=== PATIENT | female | born 1985 | race Caucasian/White ===

== ENCOUNTER 2018-03-05 20:07 | Emergency (ER) | payer OTHER, MEDICAID, SELFPAY ==
[2018-03-05 20:14] VITALS: BP 157/100; PULSE 113; RESP 20; TEMP 37.1; O2SAT 99
[2018-03-05 20:21] VITALS: BP 157/100; PULSE 113; RESP 20; TEMP 37.1; O2SAT 99
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
[2018-03-05] MEDS: TET,DIPH,PERTUSS(ACELL),VAC/PF 0.5 ML SYRINGE IM (21:27)
[2018-03-05] MEDS: OXYCODONE/ACETAMINOPHEN 5/325 TABLET 1 TAB PO (21:28)
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
[2018-03-05 22:04] VITALS: BP 148/90; PULSE 100; RESP 18; TEMP 37.2; O2SAT 98
== END 2018-03-05 22:08 | disposition home or self-care (01) ==
PROVIDERS: Emergency Provider Nurse Practitioner Family; Family Provider Family Medicine; PCP Family Medicine
DX: T21.11XA Burn of first degree of chest wall, initial encounter (principal)
CPT/HCPCS: 90471; 99282; 99283; 90715

== ENCOUNTER 2019-03-31 20:19 | Emergency (ER) | payer OTHER, MEDICAID, SELFPAY ==
--- NOTE | 2019-03-31 20:29 | PC.NURSE ---
pt reports waking today with a red painful goopy eye that has gotten worse throughout the day. She states the pain increases with pressure when she bends over to pick something up. Reports friends have pink eye. concerned for pink eye
[2019-03-31] MEDS: POLYMY B/TRIMETH OPHTH PREPACK 1 BOTTLE MISC (20:36)
--- NOTE | 2019-03-31 20:37 | ED.EYEPROB ---
HPI - Eye Problem <NATALI Pena - Last Filed: 03/31/19 21:17> General Chief complaint: Eye Problems Stated complaint: POSS PINK EYE Time Seen by Provider: 03/31/19 20:24 Source: patient Mode of arrival: ambulatory Limitations: no limitations History of Present Illness HPI Narrative: Patient is a healthy 33-year-old female who presents emergency department today complaining of purulent discharge starting this morning when she woke up. She states she had some minor irritation in her right eye and some light sensitivity. This afternoon she noticed that she had increased purulent discharge. She states that 3 of her friends have had pinkeye in the past week and she is afraid that she has same. Patient denies any vision changes, vision loss, headaches, recent illness, chest pain, shortness of breath, ear pain, sore throat, nasal congestion, abdominal pain, or other concerning findings. Related Data Previous Rx's Medication Instructions Recorded albuterol sulfate 90 mcg/actuation 2 puff INHALATION Q4HP PRN #1 inh 04/26/18 aerosol inhaler fluticasone propionate 110 1 puff INHALATION BID #12 gram 04/26/18 mcg/actuation HFA aerosol inhaler polymyxin B sulf-trimethoprim 1 drop EYE-RIGHT Q3H 7 Days #10 ml 03/31/19 Allergies Allergy/AdvReac Type Severity Reaction Status Date / Time azithromycin [AZITHROMYCIN] Allergy Mild Verified 03/31/19 20:35 Review of Systems <NATALI Pena - Last Filed: 03/31/19 21:17> Review of Systems Narrative: REVIEW OF SYSTEMS: GENERAL: Denies fever or chills. HENT: No head trauma, hearing loss, or sore throat. EYES: Complains of eye irritation and purulent discharge, see HPI. NECK/LYMPHATIC: No lymphadenopathy. CARDIOVASCULAR: No chest pain. RESPIRATORY: No cough or shortness of breath. INTEGUMENTARY: No rash, lesions, or pruritus. NEURO: No headaches or confusion. PFSH <NATALI Pena - Last Filed: 03/31/19 21:17> Medical History Asthma (Chronic 1994) Chicken pox (Resolved 1990) Chronic cough (Chronic) Migraines (Chronic 2004) Ovarian cyst (Chronic 2015) Painful menstrual periods (Chronic) Surgical History No history of previous surgery (Resolved 09/2015) Family History (Updated 04/26/18 @ 11:22 by Sweta Alvarez) Father Age: 63 Diabetes mellitus Grandfather Diabetes mellitus Heart disease Hypertension High cholesterol Kidney failure Grandmother Age: 83 Diabetes mellitus Heart disease Hypertension High cholesterol Stroke Mother Age: 63 Hypertension High cholesterol Grandmother Cancer Lung cancer Grandfather No problems noted. Social History Smoking Status: Former smoker (quit 02/2018) Family History Father Age: 63 Diabetes mellitus Grandfather Diabetes mellitus Heart disease Hypertension High cholesterol Kidney failure Grandmother Age: 83 Diabetes mellitus Heart disease Hypertension High cholesterol Stroke Mother Age: 63 Hypertension High cholesterol Grandmother Cancer Lung cancer Grandfather No problems noted. Social History Smoking Status: Former smoker (quit 02/2018) Exam <NATALI Pena - Last Filed: 03/31/19 21:17> Initial Vital Signs Initial Vital Signs: PHYSICAL EXAMINATION: GENERAL: Well groomed, alert, and cooperative. Answers questions promptly and appropriately. Vital signs noted. HENT: Normocephalic, atraumatic. Hearing intact. Oral mucosa is pink and moist. Face features symmetrical. EYES: PERRLA, EOMIs without pain, significant purulent discharge noted around right eye, conjunctiva slightly erythematous, minor swelling to upper eyelid without significant erythema, lesions, or nodules. No foreign bodies or abrasions visualized. No nasal discharge, slight erythema to oropharynx without exudate. SKIN: Warm, dry, soft, appropriate color for ethnicity. NEURO: Alert and Oriented X 3. Good coordination. PSYCH: Appropriate affect and mood. Course <NATALI Pena - Last Filed: 03/31/19 21:17> Orders Ordered: Discontinued Medications Polymyxin/Trimethoprim Sulfate (Polytrim Prepack) 1 bottle MISC SEEINSTR ONE Stop: 03/31/19 20:32 Last Admin: 03/31/19 20:36 Dose: 1 drop Documented by: JUSTA <Klever Barnes DO - Last Filed: 04/01/19 06:47> Orders Ordered: Discontinued Medications Polymyxin/Trimethoprim Sulfate (Polytrim Prepack) 1 bottle MISC SEEINSTR ONE Stop: 03/31/19 20:32 Last Admin: 03/31/19 20:36 Dose: 1 drop Documented by: JUSTA [facility] - Eye Problem <NATALI Pena - Last Filed: 03/31/19 21:17> Medical Records Attestation: I reviewed the patient's medical records. Lab Data Attestation: I reviewed the patient's lab results. MDM Narrative Medical decision making narrative: Differential includes most likely conjunctivitis (viral versus bacteria, possibly viral in nature due to lack of significant erythematous conjunctiva and associated oropharynx erythema, however, the fact that is unilateral and multiple fronts of head it suggest bacterial. Regardless, conjunctivitis is treated the same.). No concern for acute glaucoma (no eye pain, EOMIs without pain, lobe does not appear swollen), a concern for cellulitis as there is no periorbital erythema, very low concern for foreign object in the eye has known was noted on exam, patient states that she was not performing any activities such as cutting, sawing, or chopping that could put her at risk for foreign body. Discharge Plan Departure Patient Disposition: Home Clinical Impression: Conjunctivitis Qualifiers: Conjunctivitis type: acute Acute conjunctivitis type: bacterial Laterality: right Qualified Code(s): H10.31 - Unspecified acute conjunctivitis, right eye Discharge Date/Time: 03/31/19 20:46 Activity Restrictions/Additional Instructions: Thank you for entrusting me with your care today. As discussed, I believe you have conjunctivitis. Please use drops as directed. Follow up with her primary care provider next few days. Return emergency department if you develop vision loss, vision changes, severe headaches, chest pain, shortness of breath, or syncope. Prescriptions: New polymyxin B sulf-trimethoprim 10,000 unit- 1 mg/mL drops 1 drop EYE-RIGHT Q3H 7 Days Qty: 10 RF: 0 No Action fluticasone propionate [Flovent HFA] 110 mcg/actuation HFA aerosol inhaler 1 puff INHALATION BID Qty: 12 RF: 3 albuterol sulfate [Ventolin HFA] 90 mcg/actuation HFA aerosol inhaler 2 puff INHALATION Q4HP PRN (Reason: Asthma) Qty: 1 RF: 12 <Klever Barnes, DO - Last Filed: 04/01/19 06:47> Sign Out Provider Sign Out Attestation: I was immediately available in the department for consultation. Documentation has been reviewed. I agree with assessment and plan.
== END 2019-03-31 20:46 | disposition home or self-care (01) ==
LOC: ED 20:38
PROVIDERS: Emergency Provider Nurse Practitioner; PCP Family Medicine
DX: H10.31 Unspecified acute conjunctivitis, right eye (principal)
CPT/HCPCS: 99281

== ENCOUNTER 2019-04-03 13:58 | Emergency (ER) | payer OTHER, MEDICAID, SELFPAY ==
--- NOTE | 2019-04-03 14:05 | ED.EYEPROB ---
HPI - Eye Problem General Chief complaint: Eye Problems Stated complaint: Worsening pink eye Time Seen by Provider: 04/03/19 14:05 Source: patient Mode of arrival: ambulatory Limitations: no limitations History of Present Illness HPI Narrative: Patient is a 33-year-old female who presents with worsening right eye redness and pain. She was seen evaluated here 3 days ago placed on Polytrim drops she feels like it is getting worse. She still having drainage. No fevers chills she feels like sandpaper in right eye sensitive to light MD chief complaint: eye pain and eye redness Duration: constant Location: right eye Eye Symptoms: burning, redness, pain and foreign body sensation Related Data Previous Rx's Medication Instructions Recorded albuterol sulfate 90 mcg/actuation 2 puff INHALATION Q4HP PRN #1 inh 04/26/18 aerosol inhaler fluticasone propionate 110 1 puff INHALATION BID #12 gram 04/26/18 mcg/actuation HFA aerosol inhaler polymyxin B sulf-trimethoprim 1 drop EYE-RIGHT Q3H 7 Days #10 ml 03/31/19 ofloxacin 2 drop EYE-RIGHT Q4HRWA #10 ml 04/03/19 Allergies Allergy/AdvReac Type Severity Reaction Status Date / Time azithromycin [AZITHROMYCIN] Allergy Mild Verified 03/31/19 20:35 Review of Systems Review of Systems Narrative: GENERAL: Denies chills,fever HEENT: See HPI RESPIRATORY: Denies dyspnea, cough, wheezing CARDIOVASCULAR: Denies chest pain, palpitations GASTROINTESTINAL: Denies nausea, vomiting MUSCULOSKELETAL: Denies extremity pain, injury SKIN: No rash, no laceration, no pruritus NEUROLOGIC: Denies weakness, dizziness, headache, numbness 8 point review of systems is negative except for those stated above and HPI PFSH Medical History Asthma (Chronic 1994) Chicken pox (Resolved 1990) Chronic cough (Chronic) Migraines (Chronic 2004) Ovarian cyst (Chronic 2014) Painful menstrual periods (Chronic) Surgical History No history of previous surgery (Resolved 09/2015) Family History Father Age: 63 Diabetes mellitus Grandfather Diabetes mellitus Heart disease Hypertension High cholesterol Kidney failure Grandmother Age: 83 Diabetes mellitus Heart disease Hypertension High cholesterol Stroke Mother Age: 63 Hypertension High cholesterol Grandmother Cancer Lung cancer Grandfather No problems noted. Social History Smoking Status: Former smoker Family History Father Age: 63 Diabetes mellitus Grandfather Diabetes mellitus Heart disease Hypertension High cholesterol Kidney failure Grandmother Age: 83 Diabetes mellitus Heart disease Hypertension High cholesterol Stroke Mother Age: 63 Hypertension High cholesterol Grandmother Cancer Lung cancer Grandfather No problems noted. Social History Smoking Status: Former smoker Exam Initial Vital Signs Initial Vital Signs: Vital Signs Temperature 97.5 F L 04/03/19 14:06 Pulse Rate 110 H 04/03/19 14:06 Respiratory Rate 13 04/03/19 14:06 Blood Pressure 158/100 H 04/03/19 14:06 Pulse Oximetry 98 04/03/19 14:06 GENERAL: Well-appearing, well-nourished and in no acute distress. EYES right eye was treated with proparacaine, stained with fluorescein. No dye uptake. No foreign body. Subconjunctival hemorrhage noted in right eye as well. However there is significant conjunctival injection and erythema. EOMI. MAUREEN CARDIOVASCULAR: peripheral pulses in tact, cap refill <2 sec RESPIRATORY: No respiratory distress, speaks in full sentences without difficulty EXTREMITIES: Normal range of motion, no clubbing or edema. Neurovascularly intact NEUROLOGICAL: Cranial nerves II through XII grossly intact. Normal gait and speech. SKIN: Warm, dry, no petechiae, no rashes or lesions. Course Orders Ordered: Discontinued Medications Proparacaine HCl (Parcaine 0.5% Ophth Radha) 1 drops EYE-RIGHT NOW ONE Stop: 04/03/19 14:11 Last Admin: 04/03/19 14:16 Dose: 1 1000units Documented by: NATIVIDAD Vital Signs Vital signs: Vital Signs - 8 hr 04/03/19 14:06 Temperature 97.5 F L Pulse Rate 110 H Respiratory Rate 13 Blood Pressure 158/100 H Pulse Oximetry 98 MDM - Eye Problem MDM Narrative Medical decision making narrative: Will change antibiotic at this time. She also has subconjunctival hemorrhage noted in the right eye. Discharge Plan Departure Patient Disposition: Home Clinical Impression: Acute conjunctivitis, right eye Qualifiers: Acute conjunctivitis type: bacterial Qualified Code(s): H10.31 - Unspecified acute conjunctivitis, right eye Subconjunctival hemorrhage Qualifiers: Laterality: right Qualified Code(s): H11.31 - Conjunctival hemorrhage, right eye Discharge Date/Time: 04/03/19 14:46 Instructions: DI for Conjunctivitis Activity Restrictions/Additional Instructions: *You have been diagnosed with right eye conjunctivitis *What to do: Try not to touch eye you will be sensitive to light. Blood in your eye will improve over time. *Continue to take medications as directed *Follow up with your primary care provider in 2-3 days *Return to ER if you should have surrounding redness, or any new, worsening or concerning symptoms Prescriptions: New ofloxacin 0.3 % drops 2 drop EYE-RIGHT Q4HRWA Qty: 10 RF: 0 No Action fluticasone propionate [Flovent HFA] 110 mcg/actuation HFA aerosol inhaler 1 puff INHALATION BID Qty: 12 RF: 3 albuterol sulfate [Ventolin HFA] 90 mcg/actuation HFA aerosol inhaler 2 puff INHALATION Q4HP PRN (Reason: Asthma) Qty: 1 RF: 12 polymyxin B sulf-trimethoprim 10,000 unit- 1 mg/mL drops 1 drop EYE-RIGHT Q3H 7 Days Qty: 10 RF: 0 Referrals: [facility] [Outside] Cullen Guzman MD [Primary Care Provider] -
[2019-04-03 14:06] VITALS: BP 158/100; PULSE 110; RESP 13; TEMP 36.4; O2SAT 98
[2019-04-03] MEDS: PROPARACAINE 0.5% OPHTH SOL 1 DROPS EYE-RIGHT (14:16)
== END 2019-04-03 14:46 | disposition home or self-care (01) ==
PROVIDERS: Emergency Provider Emergency Medicine; PCP Family Medicine
DX: H10.31 Unspecified acute conjunctivitis, right eye (principal); H11.31 Conjunctival hemorrhage, right eye
CPT/HCPCS: 99282

== ENCOUNTER → 2020-02-23 16:53 | Outpatient (ROUT) | payer OTHER, MEDICAID, SELFPAY ==
[2020-02-27 12:26] LABS: Urine Chlamydia NOT DETECTED; Urine N gonorrhoeae NOT DETECTED
== END ==
PROVIDERS: PCP Family Medicine; Visit Provider Physician Assistant
DX: Z20.2 Contact with and (suspected) exposure to infections with a predominantly sexual mode of transmission (principal)
CPT/HCPCS: 87491; 87591

== ENCOUNTER → 2020-06-30 16:59 | Outpatient (CLI) | payer OTHER, MEDICAID, SELFPAY | PROVIDERS: PCP Family Medicine; Visit Provider Physician Assistant | DX: N89.8 Other specified noninflammatory disorders of vagina (principal) | CPT/HCPCS: 87210; 87491; 87591 ==

== ENCOUNTER 2020-11-04 23:38 | Emergency (ER) | payer OTHER, MEDICAID, SELFPAY ==
[2020-11-04 23:47] VITALS: BP 161/104; PULSE 101; RESP 22; TEMP 36.8; O2SAT 99; BMI 39.4
--- NOTE | 2020-11-05 00:12 | ED.GENADULT ---
HPI - General Adult General Chief complaint: Nasal Problem Stated complaint: loss of taste and smell Time Seen by Provider: 11/04/20 23:43 Source: patient Mode of arrival: Ambulatory Limitations: no limitations History of Present Illness HPI narrative: Patient is a 35-year-old female who approximately 2 days ago had some sinus congestion and a slight headache. Yesterday she lost her sense of taste and smell. She is here concerned about COVID-19. She has had no recent travel. No known sick contacts. Is currently not having any respiratory distress. No cough. No fevers. No body aches. Related Data Previous Rx's Medication Instructions Recorded albuterol sulfate 90 mcg/actuation 2 puff INHALATION Q4HP PRN #1 inh 02/25/20 aerosol inhaler metronidazole 500 mg tablet 500 mg PO BID #14 tab 06/30/20 Allergies Allergy/AdvReac Type Severity Reaction Status Date / Time azithromycin [AZITHROMYCIN] Allergy Mild Verified 06/30/20 17:15 Review of Systems Constitutional Constitutional: Denies fever(s) and Denies headache(s) ENT Ears, Nose, Mouth, and Throat: Denies headache(s) Comments: Loss of sense of taste and smell Cardiovascular Cardiovascular: Denies dyspnea Respiratory Respiratory: Denies cough and Denies dyspnea Integumentary/Breasts Skin/Breast: Denies rash Neurologic Neurologic: Denies behavioral changes and Denies headache(s) Psychiatric Psychiatric: Denies behavioral changes Hematologic/Lymphatic On Anticoagulants: No Allergic/Immunologic Allergic/Immunologic: Denies urticaria Patient History Medical History Asthma (1994) Bacterial vaginosis Chicken pox (1990) Chronic cough Migraines (2004) Moderate persistent asthma Ovarian cyst (2014) Painful menstrual periods Trichomonas vaginitis Surgical History No history of previous surgery (09/2015) Family History Father Age: 65 Diabetes mellitus Grandfather Diabetes mellitus Heart disease Hypertension High cholesterol Kidney failure Grandmother Age: 85 Diabetes mellitus Heart disease Hypertension High cholesterol Stroke Mother Age: 65 Hypertension High cholesterol Grandmother Cancer Lung cancer Grandfather No problems noted. Social History Smoking Status: Former smoker Smoking Status: Former smoker alcohol intake frequency: 0-2 drinks per day Substance Use Type: marijuana Exam Initial Vital Signs Initial Vital Signs: Vital Signs Temperature 98.3 F 11/04/20 23:47 Pulse Rate 101 H 11/04/20 23:47 Respiratory Rate 22 11/04/20 23:47 Blood Pressure 161/104 H 11/04/20 23:47 Pulse Oximetry 99 11/04/20 23:47 Const General: cooperative and comfortable Limitations: mental status not altered HENMT Head: normal to inspection and normocephalic Resp Effort & Inspection: normal respiratory effort Cardio Rate: regular rate Neuro General: patient alert and patient awake Speech: speech normal Extrem General: normal to inspection Psych Appearance: grossly normal and well kempt Course Orders Ordered: ED Orders 11/04/20 23:52 COVID19 -Nasal swab/Pre-Proc Stat Vital Signs Vital signs: Vital Signs - 8 hr 11/04/20 23:47 11/05/20 00:40 Temperature 98.3 F Pulse Rate 101 H 99 H Respiratory Rate 22 20 Blood Pressure 161/104 H 168/108 H Pulse Oximetry 99 99 Medical Decision Making Lab Data Lab results reviewed: Yes I reviewed the patient's lab results. Labs: Lab Results 11/04/20 Range/Units 23:52 SARS-CoV-2 (PCR) Positive H (Negative) MDM Narrative Medical decision making narrative: Patient is COVID positive. She has no respiratory symptoms today. She does live with her parents who have both been vaccinated. We did discuss current CDC guidelines with regard to quarantine herself. Discussed return precautions and follow-up instructions. She expressed understanding and agreement. Discharge Plan Departure Patient Disposition: Home Clinical Impression: 2019 novel coronavirus detected Instructions: Coronavirus Disease 2019 Activity Restrictions/Additional Instructions: Your testing today was positive for coronavirus. You can take Tylenol for any fevers. You need to quarantine yourself for at least the next 10 days and greater than 24 hours after the resolution of your symptoms. Return to the emergency department for any new or worsening symptoms Prescriptions: No Action metronidazole [Flagyl] 500 mg tablet 500 mg PO BID Qty: 14 RF: 0 albuterol sulfate [Ventolin HFA] 90 mcg/actuation HFA aerosol inhaler 2 puff INHALATION Q4HP PRN (Reason: Asthma) Qty: 1 RF: 11 Referrals: Cullen Guzman MD [Primary Care Provider] -
[2020-11-05 00:13] LABS: COVID19 -Nasal RAPID POSITIVE (Negative)
[2020-11-05 00:40] VITALS: BP 168/108; PULSE 99; RESP 20; O2SAT 99
== END 2020-11-05 00:41 | disposition home or self-care (01) ==
PROVIDERS: Emergency Provider Emergency Medicine; PCP Family Medicine
DX: U07.1 COVID-19 (principal)
CPT/HCPCS: 87635; 99281; 99282; C9803

== ENCOUNTER → 2021-12-30 08:01 | Outpatient (CLI) | payer OTHER, MEDICAID, SELFPAY | PROVIDERS: PCP Registered Nurse Diabetes Educator; Referring Provider Physician Assistant; Visit Provider Physician Assistant | DX: J02.9 Acute pharyngitis, unspecified (principal) | CPT/HCPCS: 87880 ==

== ENCOUNTER 2022-05-15 16:14 | Emergency (ER) | payer OTHER, MEDICAID, SELFPAY ==
[2022-05-15 16:32] VITALS: BP 147/91; PULSE 110; RESP 18; TEMP 36.7; O2SAT 99; BMI 35.4
--- NOTE | 2022-05-15 17:20 | ED_ITS ---
HPI - Skin/Abscess/Foreign Bdy General Chief complaint: Skin/Abscess/Foreign Body Stated complaint: Painful sores on head Time Seen by Provider: 05/15/22 16:36 Source: patient Mode of arrival: Ambulatory History of Present Illness HPI narrative: Patient is a 37-year-old female who presented to the emergency room today with complaint of a sore to her left forehead area. States that about 4 days ago she had sore on her eyelid. States the sore on her eyelid popped about 3 days ago she then noticed a sore on her eyebrow and forehead. The sore on her eyebrow popped last night and drained yellow secretions. The sore on her forehead in creased in size and pain last night. Admits to an allergy to azithromycin denies fever chills chest pain or shortness of breath. Related Data Previous Rx's Medication Instructions Recorded sulfamethoxazole 800 1 tab PO BID #14 tabs 05/15/22 mg-trimethoprim 160 mg tablet (Bactrim DS) albuterol sulfate 90 mcg/actuation 2 puff inhalation Q4HP PRN Asthma 05/19/22 aerosol inhaler (Ventolin HFA) #8.5 grams fluticasone propionate 110 1 puff inhalation BID #12 grams 05/19/22 mcg/actuation HFA aerosol inhaler (Flovent HFA) Allergies Allergy/AdvReac Type Severity Reaction Status Date / Time azithromycin [AZITHROMYCIN] Allergy Mild Rash Verified 05/19/22 14:30 Review of Systems Review of Systems Narrative: R.O.S.: General: No fever, chills or fatigue. Cardiovascular: No chest pain or palpitations Respiratory: No S.O.B. HEENT: No congestion, ear pain, rhinorrhea, sore throat or tinnitus Gastrointestinal: No nausea or vomiting : No urinary concerns Skin: Abscess to forehead Musculoskeletal: No pain in muscles or joints, no limitation of range of motion, no paresthesia or numbness. ?? Neurological: Awake, alert and in not apparent distress. No Headaches, changes in vision or other related neurological concerns. Patient History Medical History Asthma (1994) Bacterial vaginosis Chicken pox (1990) Chronic cough Migraines (2004) Moderate persistent asthma Ovarian cyst (2014) Painful menstrual periods Trichomonas vaginitis Surgical History No history of previous surgery (09/2015) Family History Father Age: 66 Diabetes mellitus Grandfather Diabetes mellitus Heart disease Hypertension High cholesterol Kidney failure Grandmother Age: 86 Diabetes mellitus Heart disease Hypertension High cholesterol Stroke Mother Age: 66 Hypertension High cholesterol Grandmother Cancer Lung cancer Grandfather No problems noted. Social History Smoking Status: Current some day smoker Smoking Status: Current some day smoker alcohol intake frequency: a few times a week Substance Use Type: marijuana Exam Narrative Exam Narrative: Physical Exam: ? General: normal appearance, well developed, well nourished, alert, and awake. Not in acute distress. ? Head: Normocephalic, no lesions. Chest: Lungs CTAB, no rales, rhonchi or wheezes. ?? Heart: RRR, no murmurs, rubs or gallops. Eyes: PERRLA, EOM's full, conjunctivae clear. ? Neuro: Physiological, no localizing findings, CN3-12 intact. ?? Extremities: Warm, well perfused, FROM, no deformities, no edema. ?? Skin: Patient has a slightly fluctuant abscess to the left mid forehead area. The area has slight erythema edema with no drainage at this time. Area does have a small yellow punctate area in the center. PSYCHIATRIC: The mood is good, no blunted affect. Speech is clear. Thought process is linear, thought content is appropriate. The voice is without signific ant inflection. Gastrointestinal: Soft; NT; ND; Pos BS with Neg. rebound tenderness. No scars or major deformities noted on Visual Inspection. Initial Vital Signs Initial Vital Signs: Vital Signs Temperature 98.1 F 05/15/22 16:32 Pulse Rate 110 H 05/15/22 16:32 Respiratory Rate 18 05/15/22 16:32 Blood Pressure 147/91 H 05/15/22 16:32 Pulse Oximetry 99 05/15/22 16:32 Oxygen Delivery Method 05/15/22 16:32 Procedures Abscess I/D I&D #1: Site: face Side (if applicable): left (forehead) Local Anesthetic: lidocaine 2% Technique: incised with #11 blade Amount of fluid expressed (mL): 2 Irrigation: Yes Packing used?: none Course Orders Ordered: ED Orders 05/15/22 17:17 Wound Culture and Gram Stain Stat Vital Signs Vital signs: Vital Signs - 8 hr 05/15/22 16:32 Temperature 98.1 F Pulse Rate 110 H Respiratory Rate 18 Blood Pressure 147/91 H Pulse Oximetry 99 Oxygen Delivery Method Room Air MDM - Skin/Abscess/Foreign Bdy MDM Narrative Medical decision making narrative: Patient presents emergency room with an abscess over her forehead that started about 4 days ago and increased to peak in pain and discomfort last night. Abscess was I and D and culture was sent. Antibiotics ordered dressing applied and patient advised to return to emergency room should emergent concerns arise. Discharge Plan Departure Patient Disposition: Home Clinical Impression: Abscess of skin or subcutaneous tissue Qualifiers: Site of cutaneous abscess: head Qualified Code(s): L02.811 - Cutaneous abscess of head [any part, except face] Instructions: DI for Skin Abscess Activity Restrictions/Additional Instructions: *You have been diagnosed with abscess the forehead area. Your abscess was drained for a moderate amount purulent Secretions and a culture was sent to the lab. I have also ordered antibiotics for infection. Please take antibiotics as ordered and continue to clean the area. [ ] *What to do: *Please continue to take your regular medications as directed. [ ] New medication prescriptions sent to your pharmacy: [ ] [x] New medication written as a paper prescription [ ] No new medications given *Please follow up with your primary care provider in 2-3 days, call for an appointment. Let them know you were seen in the Emergency Department and that we ask that you be seen in follow up. We will electronically transmit a record of today's note if your PCP is in our system *If you do not have a primary care provider please contact the [facility] Resource line at [phone]. They will ask some questions about your medical history and help get you set up with a doctor in the community. *Return to Emergency Department if you should have any new, worsening or concerning symptoms, such as [fever greater than 101 F, shaking chills, worsening pain, persistent vomiting or other bothersome symptoms] Prescriptions: New sulfamethoxazole-trimethoprim [Bactrim DS] 800-160 mg tablet 1 tab PO BID Qty: 14 0RF No Action fluticasone propionate [Flovent HFA] 110 mcg/actuation HFA aerosol inhaler 1 puff INHALATION BID Qty: 12 3RF albuterol sulfate [Ventolin HFA] 90 mcg/actuation HFA aerosol inhaler 2 puff INHALATION Q4HP PRN (Reason: Asthma) Qty: 8.5 3RF Referrals: Les Chaney ARNP [Primary Care Provider] - Visit Report Forms: Patient Portal/API
--- NOTE | 2022-05-15 17:39 | PC.NURSE ---
Derick GALLO did an I&D on head wound. culture sent down. states he got a large amount of pus
== END 2022-05-15 17:50 | disposition home or self-care (01) ==
PROVIDERS: Emergency Provider Physician Assistant; PCP Registered Nurse Diabetes Educator
DX: L02.01 Cutaneous abscess of face (principal)
CPT/HCPCS: 10060; 87070; 87075; 87077; 87147; 87186; 87205; 99281; 99283

== ENCOUNTER → 2025-01-04 07:52 | Outpatient (CLI) | payer OTHER, SELFPAY ==
[2025-01-04 08:42] LABS: Influenza A - CEPHEID Flu A POSITIVE (NEGATIVE); Influenza B - CEPHEID Flu B NEGATIVE (NEGATIVE); Respiratory Syncytial Virus Negative (Negative)
[2025-01-04 09:08] LABS: COVID-19 CEPHEID 4-PLEX PCR Negative (Negative)
== END ==
PROVIDERS: PCP Registered Nurse Diabetes Educator; Visit Provider Nurse Practitioner Family
DX: R05.1 Acute cough (principal)
CPT/HCPCS: 87635; 87400; 87420; 0241U

== ENCOUNTER → 2025-03-04 07:12 | Outpatient (CLI) | payer OTHER, SELFPAY ==
[2025-03-04 08:28] LABS: Hematocrit 42.4 % (36-46); Hemoglobin 14.5 g/dL (12.0-16.0); Mean Corpuscular HGB Conc 34.2 % (30-36); Mean Corpuscular Hemoglobin 29.9 PG (26-34); Mean Corpuscular Volume 87.4 fL (80-100); Platelet Count 279 X10^3/uL (150-400)
[2025-03-04 08:39] LABS: Alanine Aminotransferase 25 IU/L (<35); Albumin 4.2 g/dL (3.5-5.0); Albumin Globulin Ratio 1.6 (1.0-2.8); Alkaline Phosphatase 89 U/L (38-126); Blood Urea Nitrogen 17 mg/dL (7-17); Calcium 9.5 mg/dL (8.4-10.2); Carbon Dioxide 32 mmol/L (22-32); Chloride 99 mmol/L (98-107); Cholesterol 196 mg/dL (140-199); Estimated Glomerular Filt Rate > 60 mL/min (>60); Globulin 2.7 g/dL (1.7-4.1); Glucose 96 mg/dL (70-99); HDL Cholesterol 52 mg/dL (40-60); HEMOLYSIS < 15 (0-50); Potassium 4.4 mmol/L (3.4-5.1); Sodium 138 mmol/L (137-145); Total Protein 6.9 g/dL (6.3-8.2); Triglycerides 134 mg/dL (35-150)
[2025-03-04 09:08] LABS: TSH w/ Reflex to FT4 3.79 uIU/mL (0.47-4.68)
== END ==
PROVIDERS: PCP Registered Nurse Diabetes Educator; Referring Provider Registered Nurse Diabetes Educator; Visit Provider Registered Nurse Diabetes Educator
DX: I10 Essential (primary) hypertension (principal); Z00.00 Encounter for general adult medical examination without abnormal findings
CPT/HCPCS: 36415; 80053; 80061; 84443; 85027